=== PATIENT | male | born 1990 | race Caucasian/White ===

== ENCOUNTER 2022-06-08 09:43 | Emergency (ER) | payer OTHER, SELFPAY ==
[2022-06-08 10:07] VITALS: BP 124/81; PULSE 68; RESP 18; TEMP 36.8; O2SAT 98; BMI 39.4
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
--- NOTE | 2022-06-08 10:32 | PC.NURSE ---
pt declined any pain medication
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
== END 2022-06-08 11:41 | disposition home or self-care (01) ==
PROVIDERS: Emergency Provider Emergency Medicine
DX: S13.4XXA Sprain of ligaments of cervical spine, initial encounter (principal); V89.2XXA Person injured in unspecified motor-vehicle accident, traffic, initial encounter
CPT/HCPCS: 72040; 72072; 99283

== ENCOUNTER 2022-06-16 17:44 | Emergency (ER) | payer OTHER, SELFPAY ==
[2022-06-16 17:47] VITALS: BP 127/83; PULSE 84; RESP 16; TEMP 36.7; O2SAT 97; BMI 39.4
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
[2022-06-16] MEDS: ketorolac 60 mg/2 mL INJ IM (18:16)
[2022-06-16 18:39] VITALS: PULSE 87; RESP 16; O2SAT 97
== END 2022-06-16 18:40 | disposition home or self-care (01) ==
PROVIDERS: Emergency Provider Physician Assistant
DX: S06.0X0A Concussion without loss of consciousness, initial encounter (principal); V89.2XXA Person injured in unspecified motor-vehicle accident, traffic, initial encounter
CPT/HCPCS: 96372; 99284; J1885